=== PATIENT | male | born 1955 | race Caucasian/White ===

== ENCOUNTER → 2016-11-15 | Outpatient (CLI) | payer MEDICARE, BC ==
--- NOTE | 2016-11-18 14:06 | PN ---
This is a 61-year-old male patient with known history of obstructive sleep apnea with AHI of 27 was being treated with CPAP pressure of 11 cm of water. The patient lives in [place] and he spends [place] in [place]. His CPAP unit was checked during his earlier visit and he was not having any active issues. However, on today's evaluation the patient seems to be interested in a newer CPAP unit. He feels that he is not getting adequate pressure from his older unit and he wants to upgrade this machine to an automatic CPAP. He was apparently hospitalized in [place] for trouble with atrial fibrillation and he is currently being followed up by Cardiology. BP is 118/82, pulse 66, respirations 14, temperature 97.9, weight is 137, height is 5 foot 7, BMI is 37.1. [place] score is at 12. GENERAL APPEARANCE: Calm, comfortable. HEENT: Negative for JVD. No goiter or neck masses. Mallampati class IV. LUNGS: Clear to auscultation. HEART: Sounds are regular, positive S1, S2. No S3, S4 or murmurs. ABDOMEN: Soft, nontender, no organomegaly. EXTREMITIES: No edema, cyanosis or clubbing. IMPRESSION: 1. Obstructive sleep apnea with an apnea-hypopnea index of 27. 2. Obesity. 3. Paroxysmal atrial fibrillation. PLAN: Will offer this patient auto CPAP unit. If this is approved by the insurance the patient will come and see me back in a few months time for a compliance check. He is utilizing a [employer] Quattro full-face mask. [facility]
== END | disposition home or self-care (01) ==
LOC: SLEEP 13:36
PROVIDERS: ATTEND Internal Medicine Critical Care Medicine
DX: G47.33 Obstructive sleep apnea (adult) (pediatric) (principal); I48.91 Unspecified atrial fibrillation; E66.9 Obesity, unspecified; Z68.37 Body mass index [BMI] 37.0-37.9, adult

== ENCOUNTER → 2017-09-21 | Outpatient (CLI) | payer MEDICARE, BC ==
--- NOTE | 2017-09-21 13:41 | US ---
EXAMINATION TYPE: US kidneys/renal and bladder DATE OF EXAM: 09/21/2017 COMPARISON: NONE CLINICAL HISTORY: N20.0 kidney stones. EXAM MEASUREMENTS: Right Kidney: 12.1 x 6.2 x 5.2 cm Left Kidney: 12.5 x 5.4 x 6.7 cm Post Void Residual Volume: 3 mL Right Kidney: There are anechoic renal cyst in the mid pole measuring 6.0 x 5.1 x 4.9 cm and in the upper pole measuring 2.0 x 1.9 x1.7 cm. Additionally there is a 1.6 x 1.6 x 1.7 cm hypoechoic well ci rcumscribed mass adjacent to the larger renal cyst within the midpole. No hydronephrosis. Left Kidney: cysts, 1.6 x 1.6 x 1.9 upper pole, 1.7 x 1.5 x 1.1 cm lower pole , mild hydro , right calculi 0.6 cm Bladder: wnl Bilateral Jets seen: Yes Normal Post Void Residual: Yes IMPRESSION: 1. Mild left hydronephrosis although a distal urinary bladder jet is seen on the left. CT urogram cou ld be performed to evaluate for incompletely obstructing calculus or mass. 2. Multiple bilateral renal cysts, however there is additionally a 1.7 cm right renal lesion that luciano s not fit criteria for a simple cyst and could be further evaluated on the above recommended CT.
== END | disposition home or self-care (01) ==
LOC: RADUSWWP 12:31
PROVIDERS: ATTEND Family Medicine
DX: N13.30 Unspecified hydronephrosis (principal); N28.1 Cyst of kidney, acquired
CPT/HCPCS: 76770

== ENCOUNTER → 2017-10-03 | Outpatient (CLI) | payer MEDICARE, BC ==
--- NOTE | 2017-10-04 08:01 | CT ---
EXAMINATION TYPE: CT abdomen wo/w con DATE OF EXAM: 10/03/2017 COMPARISON: CT abdomen and pelvis December 14, 2012. Recent renal ultrasound September 21, 2017 HISTORY: Bilateral flank pain and hematuria. CT DLP: 2887.2 mGycm, Automated Exposure Control for Dose Reduction was Utilized. CONTRAST: CT scan of the abdomen is performed without oral and without and with IV Contrast, patient injected w ith 100ml mL of Isovue M300. FINDINGS: LUNG BASES: There is partial visualization of new right-sided pacemaker/defibrillator leads. There is linear scarring and/or atelectasis in both bases. LIVER/GB: Stone filled gallbladder is redemonstrated, there appears to be stones extending into the g allbladder neck or cystic duct. No surrounding inflammatory change is present. PANCREAS: No significant abnormality is seen. SPLEEN: No significant abnormality is seen. ADRENALS: No significant abnormality is seen. KIDNEYS: Noncontrast images show 6-8 small calculi scattered throughout the right kidney measuring up to 6 mm in size lower pole level axial image 46. In addition there is 5 mm collecting system calculu s axial image 41. The left kidney shows approximately 8 scattered small calculi largest measures 6 mm long axis axial image 36 mid pole level. Postcontrast images show symmetric cortical medullary uptak e and excretion without evidence of hydronephrosis or obstructing ureter calculi bilaterally. There are 3 simple appearing cysts scattered throughout the right kidney, largest is anteriorly mid p ole level measuring 5.1 x 5.0 cm image 45 series 10 not significantly changed in size or appearance f rom prior CT. The upper pole cyst is enlarged in size from prior study. Within left kidney there are 2 simple appearing cysts redemonstrated slightly larger in size versus prior study noted on axial traci ge 39 and 45 series 10. No worrisome solid or cystic mass is identified in either kidney. BOWEL: No significant abnormality is seen. LYMPH NODES: No greater than 1cm abdominal lymph nodes are appreciated. OSSEOUS STRUCTURES: There is grade 1 anterolisthesis of L5 on S1. There is advanced disc space narrow ing with vacuum disc phenomenon and endplate sclerosis at this level. There is moderate to advanced d isc space narrowing with vacuum disc phenomenon L4-L5 level. Bilateral pars defects L5 level are seen . There is prominent facet arthropathy lower lumbar spine. OTHER: No significant additional abnormality is seen. IMPRESSION: 1. Bilateral nephrolithiasis redemonstrated. There is increase in number of calculi bilaterally from prior CT. Or calculi are visualized on CT than suspected on recent ultrasound. 2. No hydronephrosis is evident currently. There is symmetric cortical medullary uptake and excretion . There is interval resolution of mild left-sided hydronephrosis from recent ultrasound noted. 3. There are several simple appearing cysts scattered throughout both kidneys. No suspicious solid or cystic renal mass is identified in either kidney.
== END | disposition home or self-care (01) ==
LOC: RADCTMAIN 17:36
PROVIDERS: ATTEND Family Medicine
DX: N20.0 Calculus of kidney (principal); N28.1 Cyst of kidney, acquired
CPT/HCPCS: 74170; Q9967

== ENCOUNTER → 2018-10-09 | Outpatient (CLI) | payer MEDICARE, OTHER ==
--- NOTE | 2018-10-09 13:46 | XR ---
KUB HISTORY: Left kidney stone Frontal KUB on [address] images correlated to prior CT dated 10/03/2017 There is a calcification in the left paraspinal location at the L4-5 level measuring approximately 8 x 4 mm. May be some smaller calcifications immediately adjacent. Small calcification present within t he left kidney and right kidney as described on prior CT, the largest measures only approximately 2 m m. There are at least 3 calcifications on the right and on the left. Multiple calcifications are note d within the pelvis, there may be distal ureteral calcifications present. IMPRESSION: Bilateral nephrolithiasis. Possible ureteral calcifications as described.
== END | disposition home or self-care (01) ==
LOC: RADXRMAIN 11:21
PROVIDERS: ATTEND Urology
DX: N20.0 Calculus of kidney (principal)
CPT/HCPCS: 74018

== ENCOUNTER → 2018-10-18 | Outpatient (CLI) | payer MEDICARE ==
--- NOTE | 2018-10-18 14:11 | XR ---
KUB HISTORY: Calculus of ureter, bilateral renal calculi Frontal KUB on 2 images correlated to prior KUB 10/09/2018 Multiple bilateral renal calcifications are again noted. Calcification along the proximal left ureter region overlying the L3 transverse process is again noted and shows a similar appearance measuring a pproximately 12 mm in cephalad to caudal dimension, there may be fragmentation. Multiple calcificatio ns again noted in the pelvis. Calcifications within the distribution of the distal left ureter are no longer seen. High density within the gallbladder compatible with stones. IMPRESSION: Left ureteral calcification persists. Additional findings above. Bilateral nephrolithiasi s.
== END | disposition home or self-care (01) ==
LOC: RADXRMAIN 11:00
PROVIDERS: ATTEND Urology
DX: N20.0 Calculus of kidney (principal); N28.89 Other specified disorders of kidney and ureter; Z88.5 Allergy status to narcotic agent
CPT/HCPCS: 74018

== ENCOUNTER → 2018-10-31 | Outpatient (CLI) | payer MEDICARE ==
--- NOTE | 2018-10-31 12:57 | XR ---
EXAMINATION TYPE: XR KUB DATE OF EXAM: 10/31/2018 COMPARISON: 10/18/2018 HISTORY: 10/18/2018 TECHNIQUE: One view abdominal series FINDINGS: The osseous structures are intact. The bowel gas pattern is nonspecific. Left kidney and collecting system: There are approximately 7 punctate 3 mm or less calcifications karla ng the lower pole of the left kidney. There is a calcification along the left paraspinal line between the L4 and L5 disc interspace measuring 12 mm in length and 5.2 mm in transverse dimension. Right kidney: Assessment is limited due to overlying bowel content. There is suspicion for at least f our 3 mm or less calcifications overlying the lower pole the right kidney. Pelvis: Calculi in the pelvis are stable and most typical of vascular phleboliths. Diffuse osteopenia is noted. There is multilevel degenerative change of the spine. Arthropathy of the hips noted. Calcifications the pelvis are likely vascular. IMPRESSION: 1. Stable left-sided renal calculi totaling an approximate number of 7. All measuring 3 mm or less. 2. Stable mid left ureteral calculus adjacent to the L4-L5 disc space measuring 5.2 mm in transverse dimension and 12 mm in craniocaudal dimension. 3. Assessment of the right renal outline is somewhat limited due to bowel content. Suspicion for at l east a 4 less than 3 mm right renal calculi.
== END | disposition home or self-care (01) ==
LOC: RADXRMAIN 12:33
PROVIDERS: ATTEND Urology
DX: N20.1 Calculus of ureter (principal); N20.0 Calculus of kidney
CPT/HCPCS: 74018

== ENCOUNTER → 2018-11-26 | Outpatient (CLI) | payer MEDICARE ==
--- NOTE | 2018-11-26 09:51 | XR ---
EXAMINATION TYPE: XR KUB DATE OF EXAM: 11/26/2018 COMPARISON: 10/31/2018 HISTORY: Ureteral stone TECHNIQUE: One view abdominal series FINDINGS: The osseous structures are intact. The bowel gas pattern is nonspecific. Left kidney demonstrates approximately 5 calcifications overlying the lower pole. Mid and upper pole scared. Right kidney: There are approximately one calcification measuring 3 mm upper pole. Pelvis: Stable appearing calcifications and therefore likely vascular. Previous noted left paraspinal calculus no longer identified. Arthropathy of the hips and degenerative change of the spine. Surgical changes involving the hardware suggested with cardiac device. Bowel gas pattern nonspecific. Chronic rib cage deformity in the righ t. IMPRESSION: 1. Left paraspinal calculus at the L4-L5 level is no longer identified. 2. Bilateral nephrolithiasis.
== END | disposition home or self-care (01) ==
LOC: RADXRMAIN 09:22
PROVIDERS: ATTEND Urology
DX: N20.0 Calculus of kidney (principal)
CPT/HCPCS: 74018

== ENCOUNTER → 2018-12-13 | Outpatient (CLI) | payer MEDICARE ==
--- NOTE | 2018-12-14 08:08 | CT ---
EXAMINATION TYPE: CT chest wo con DATE OF EXAM: 12/13/2018 COMPARISON: January 18, 2011 HISTORY: Multiple lung nodules. CT DLP: 615.[address] of the chest was performed with lung and mediastinal window settings submitted. The la ck of contrast limits evaluation of the vascular, mediastinal and parenchymal structures including th e upper abdomen. LUNGS: Mild chronic elevation left hemidiaphragm. Left basilar parenchymal scarring is stable. Scatte red subpleural nodules remain unchanged without suspicious nodule or mass identified at this time. No focal consolidation or volume loss. MEDIASTINUM/VIRGIL: Thoracic aorta is of normal caliber with limited evaluation given lack of contrast . The heart is not enlarged. The heart is enlarged. Pacer device is noted in place. No evidence for mediastinal mass. No lymph nodes greater than 1cm. UPPER ABDOMEN: Hypoattenuating lesion upper pole left kidney may reflect a cyst. Right-sided nephroli thiasis. OTHER: No significant other abnormality. IMPRESSION: 1. Scattered subpleural nodules remain unchanged without suspicious nodule or mass identified at thi s time.
== END | disposition home or self-care (01) ==
LOC: RADCTMAIN 16:16
PROVIDERS: ATTEND Family Medicine
DX: R91.8 Other nonspecific abnormal finding of lung field (principal)
CPT/HCPCS: 71250

== ENCOUNTER → 2018-12-25 | Outpatient (CLI) | payer MEDICARE ==
--- NOTE | 2018-12-25 10:30 | XR ---
EXAMINATION TYPE: XR KUB DATE OF EXAM: 12/25/2018 COMPARISON: 11/26/2018 HISTORY: Post lithotripsy TECHNIQUE: One view abdominal series FINDINGS: There is a 2 mm calcification overlying the right renal outline. There are 4 less than 5 mm calcifications overlying the lower pole the left renal. Chronic rib deformity on the right suspected. Cardiac lead noted with degenerative change of the spin e and diffuse osteopenia. Bowel gas pattern nonspecific. Pelvis: Arthropathy of the hips. There are stable appearing calcifications involving the pelvis. IMPRESSION: 1. Pelvic calcifications are stable in size and number relative to the prior exam. Suspect bilateral nephrolithiasis. No significant interval change.
== END | disposition home or self-care (01) ==
LOC: RADXRMAIN 09:47
PROVIDERS: ATTEND Urology
DX: N20.1 Calculus of ureter (principal)
CPT/HCPCS: 74018

== ENCOUNTER → 2019-01-01 | Outpatient (CLI) | payer MEDICARE ==
--- NOTE | 2019-01-02 11:11 | ECHOF ---
Referral Reason:R91.8 multi lung nodules, I42.9 prim cardio myopat MEASUREMENTS -------- HEIGHT: 175.3 cm WEIGHT: 113.4 kg BP: IVSd: 0.8 cm (0.6 - 1.1) LVIDd: 4.1 cm (3.9 - 5.3) LVPWd: 1.0 cm (0.6 - 1.1) IVSs: 1.4 cm LVIDs: 1.8 cm LVPWs: 1.4 cm LAESV Index (A-L): 20.00 ml/m Ao Diam: 3.4 cm (2.0 - 3.7) AV Cusp: 2.5 cm (1.5 - 2.6) LA Diam: 4.2 cm (2.7 - 3.8) MV EXCURSION: 17.961 mm (> 18.000) MV EF SLOPE: 71 mm/s (70 - 150) EPSS: 0.2 cm MV E Piotr: 0.55 m/s MV DecT: 282 ms MV A Piotr: 0.83 m/s MV E/A Ratio: 0.67 RAP: 5.00 mmHg RVSP: 15.58 mmHg FINDINGS -------- Sinus rhythm. Pacemaker This was a technically adequate study. The left ventricular size is normal. Left ventricular wall thickness is normal. Overall left vent ricular systolic function is normal with, an EF between 55 - 60 %. The right ventricle is normal in size. Normal LA size by volume 22+/-6 ml/m2. The right atrial size is normal. Aortic valve is trileaflet and is mildly thickened. The mitral valve is normal. There is trace mitral regurgitation. The tricuspid valve appears structurally normal. Trace tricuspid regurgitation present. Right cyrus tricular systolic pressure is normal at < 35 mmHg. There is no pulmonic regurgitation present. The aortic root size is normal. Normal inferior vena cava with normal inspiratory collapse consistent with estimated right atrial pre ssure of 5 mmHg. There is no pericardial effusion. CONCLUSIONS -------- 1. Sinus rhythm. 2. Pacemaker 3. This was a technically adequate study. 4. The left ventricular size is normal. 5. Left ventricular wall thickness is normal. 6. Overall left ventricular systolic function is normal with, an EF between 55 - 60 %. 7. The right ventricle is normal in size. 8. Normal LA size by volume 22+/-6 ml/m2. 9. The right atrial size is normal. 10. Aortic valve is trileaflet and is mildly thickened. 11. The mitral valve is normal. 12. There is trace mitral regurgitation. 13. The tricuspid valve appears structurally normal. 14. Trace tricuspid regurgitation present. 15. Right ventricular systolic pressure is normal at < 35 mmHg. 16. There is no pulmonic regurgitation present. 17. The aortic root size is normal. 18. Normal inferior vena cava with normal inspiratory collapse consistent with estimated right atrial pressure of 5 mmHg. 19. There is no pericardial effusion. ACCOUNTING/FINANCE TUTOR: Bria Quinn RDCS
== END | disposition home or self-care (01) ==
LOC: RADECHMAIN 15:06
PROVIDERS: ATTEND Family Medicine
DX: I35.8 Other nonrheumatic aortic valve disorders (principal)
CPT/HCPCS: 93306

== ENCOUNTER → 2019-10-21 | Outpatient (CLI) | payer MEDICARE ==
--- NOTE | 2019-10-21 15:19 | XR ---
EXAMINATION TYPE: XR KUB DATE OF EXAM: 10/21/2019 COMPARISON: 12/25/2018 HISTORY: Pain TECHNIQUE: One view abdominal series FINDINGS: The osseous structures are intact. The bowel gas pattern is nonspecific. Arthropathy of the hips not ed. Diffuse osteopenia and degenerative change of the spine. Correlate for sacral iliac arthritis. Left kidney: There are approximately 8 calcifications scattered throughout the left kidney the larges t is seen in the lower pole measuring 4 mm. Remaining calcifications measure less than 4 mm. Some of these were not definitively seen on the prior exam. Right kidney: There are approximately 6 calcifications identified within the right kidney the largest measuring 3 mm. Some of which were not definitively seen on the prior exam. Pelvis: Numerous calcifications in the pelvis appear to BE most likely vascular. There is a single le genny within the upper left pelvis measuring 3 mm which could been the course of the left ureter. This calcification was not seen with certainty on the prior exam. IMPRESSION: 1. Bilateral nephrolithiasis WHICH measure less than 5 mm. Some may be new relative to the prior exam . 2. There is a new calcification in the left hemipelvis. This measures approximately 3 mm and could be within the course of the left distal ureter.
== END | disposition home or self-care (01) ==
LOC: RADXRMAIN 14:59
PROVIDERS: ATTEND Urology
DX: N20.0 Calculus of kidney (principal); R93.5 Abnormal findings on diagnostic imaging of other abdominal regions, including retroperitoneum
CPT/HCPCS: 74018

== ENCOUNTER → 2019-12-24 | Outpatient (CLI) | payer MEDICARE ==
--- NOTE | 2019-12-24 10:06 | US ---
EXAMINATION TYPE: US kidneys/renal and bladder DATE OF EXAM: 12/24/2019 COMPARISON: CT 2017, US 09/21/2017 CLINICAL HISTORY: N20.0 Calculus of kidney. Patient recently had lithotripsy bilaterally EXAM MEASUREMENTS: Right Kidney: 10.7 x 6.0 x 5.9 cm Left Kidney: 11.9 x 5.9 x 5.6 cm Right Kidney: No hydronephrosis. Multiple cystic areas visualized measuring 2.5 x2.3 x 2.6 cm. Tiny e chogenic foci visualized measuring 0.5 cm. Large cystic area visualized on previous is not visualized on this exam- patient cannot recall any intervention with a cyst. Left Kidney: No hydronephrosis. Multiple cystic areas visualized 2.69 x 1.8 x 2.5 cm. Echogenic foci visualized measuring 0.4 cm Bladder: wnl IMPRESSION: 1. Multiple bilateral renal cysts. 2. Nonobstructing nephrolithiasis.
[2019-12-24 11:24] LABS: ALT 23 U/L (4-49); AST 26 U/L (17-59); African American GFR (CKD) >90 (>60 ml/min/1.73 sqM); Alkaline Phosphatase 127 U/L (38-126); Anion Gap 6 mmol/L; Blood Urea Nitrogen 17 mg/dL (9-20); Calcium 8.9 mg/dL (8.4-10.2); Carbon Dioxide 25 mmol/L (22-30); Chloride 106 mmol/L (98-107); Cholesterol 134 mg/dL (<200); Creatine Kinase 74 U/L (55-170); Glucose 94 mg/dL (74-99); HDL Cholesterol 50 mg/dL (40-60); LDL Cholesterol,Calculated 67 mg/dL (0-99); Non-African American GFR(CKD) 90 (>60 ml/min/1.73 sqM); Potassium 4.8 mmol/L (3.5-5.1); Sodium 137 mmol/L (137-145); Total Bilirubin 0.7 mg/dL (0.2-1.3); Total Protein 6.6 g/dL (6.3-8.2); Triglycerides 86 mg/dL (<150)
[2019-12-24 11:29] LABS: Basophils % (A) 1 %; Eosinophils # (A) 0.1 k/uL (0-0.7); Eosinophils % (A) 2 %; HCT 46.1 % (39.0-53.0); HGB 14.8 gm/dL (13.0-17.5); Lymphocytes # (A) 1.2 k/uL (1.0-4.8); Lymphocytes % (A) 29 %; MCH 29.8 pg (25.0-35.0); MCV 92.9 fL (80.0-100.0); Mean Platelet Volume 12.7; Monocytes # (A) 0.3 k/uL (0-1.0); Monocytes % (A) 8 %; Neutrophils # (A) 2.5 k/uL (1.3-7.7); Neutrophils % (A) 59 %; Platelet Count 114 k/uL (150-450); RBC 4.96 m/uL (4.30-5.90); RDW 13.6 % (11.5-15.5); WBC 4.2 k/uL (3.8-10.6)
[2019-12-24 12:13] LABS: Anisocytosis (M) Present; Large Platelets Present; Poikilocytosis (M) Present
--- NOTE | 2019-12-24 16:30 | XR ---
EXAMINATION TYPE: XR KUB DATE OF EXAM: 12/24/2019 10:10 AM CLINICAL HISTORY: Bilateral kidney stones TECHNIQUE: Frontal images of the abdomen and pelvis were obtained COMPARISON: Abdominal radiograph 10/21/2019. FINDINGS: Numerous bilateral calculi overlie the renal shadows, some of which were better appreciated on prior examination and partially obscured. The previously visualized 3 mm calcification over the l eft hemipelvis is not seen on current exam. Nonspecific bowel gas pattern. Degenerative changes of th e spine and bilateral hips. IMPRESSION: 1. Previously described 3 mm calcification over the left hemipelvis is not seen on current exam and m ay represent passed stone. 2. Numerous bilateral nephrolithiasis.
[2019-12-24 19:00] LABS: Prostate Specific Antigen 3.1 ng/mL (0.0-4.5)
[2019-12-24 19:49] LABS: Hemoglobin A1C 5.4 % (4.0-6.0)
== END | disposition home or self-care (01) ==
LOC: RADUSWWP 09:14
PROVIDERS: ATTEND Urology
DX: N28.1 Cyst of kidney, acquired (principal); N20.0 Calculus of kidney; E78.5 Hyperlipidemia, unspecified; Z12.5 Encounter for screening for malignant neoplasm of prostate; Z88.5 Allergy status to narcotic agent
CPT/HCPCS: 74018; 76770; 80053; 80061; 82550; 83036; 84153; 85025

== ENCOUNTER → 2020-02-10 | Outpatient (CLI) | payer MEDICARE ==
--- NOTE | 2020-02-10 15:52 | XR ---
EXAMINATION TYPE: XR KUB DATE OF EXAM: 02/10/2020 COMPARISON: [id number] HISTORY: Pain TECHNIQUE: One view abdominal series FINDINGS: The osseous structures are intact. The bowel gas pattern is nonspecific. Left kidney: There are 2 calcifications overlying the mid and lower pole the largest measuring 4.4 mm . Suspect punctate upper pole additional calculus. Right kidney: Suspect a punctate 1 mm upper pole and 2 additional punctate 1 to 2 mm lower pole right renal calculi. Calcifications within the pelvis are stable likely vascular. Arthropathy of the hips, diffuse osteope alda and degenerative change of the spine noted. IMPRESSION: 1. Bilateral nephrolithiasis.
== END | disposition home or self-care (01) ==
LOC: RADXRMAIN 15:23
PROVIDERS: ATTEND Urology
DX: N20.0 Calculus of kidney (principal)
CPT/HCPCS: 74018

== ENCOUNTER → 2020-05-06 | Outpatient (CLI) | payer MEDICARE ==
[2020-05-06 10:32] LABS: Basophils % (A) 1 %; Eosinophils # (A) 0.2 k/uL (0-0.7); Eosinophils % (A) 5 %; HGB 15.2 gm/dL (13.0-17.5); Lymphocytes # (A) 1.4 k/uL (1.0-4.8); Lymphocytes % (A) 28 %; MCH 29.9 pg (25.0-35.0); MCHC 33.1 g/dL (31.0-37.0); MCV 90.4 fL (80.0-100.0); Mean Platelet Volume 10.2; Monocytes # (A) 0.3 k/uL (0-1.0); Monocytes % (A) 7 %; Neutrophils # (A) 2.8 k/uL (1.3-7.7); Neutrophils % (A) 57 %; Platelet Count 108 k/uL (150-450); RBC 5.09 m/uL (4.30-5.90); RDW 13.3 % (11.5-15.5); WBC 4.9 k/uL (3.8-10.6)
[2020-05-06 11:07] LABS: Large Platelets Present
[2020-05-06 16:04] LABS: African American GFR (CKD) 102.8 (60.0-200.0); Albumin 4.2 g/dL (3.80-4.90); Anion Gap 8.8 mmol/L (4.00-12.00); BUN/Creat Ratio 23.33 Ratio (12.00-20.00); Calcium 9.3 mg/dL (8.7-10.3); Carbon Dioxide 24.2 mmol/L (21.6-31.8); Chol/HDL Ratio 3.26; Globulin 2.1 g/dL (1.6-3.3); LDL Cholesterol,Calculated 83.8 mg/dL (0.0-131.0); Non-African American GFR(CKD) 88.7 (60.0-200.0); Potassium 4.3 mmol/L (3.5-5.5); Total Bilirubin 0.9 mg/dL (0.2-1.2); Total Protein 6.3 g/dL (6.2-8.2); VLDL Calculation 20.2 mg/dL (5.00-40.00)
[2020-05-06 16:13] LABS: T4, Free (Free Thyroxine) 0.9 ng/dL (0.80-1.80)
== END | disposition home or self-care (01) ==
LOC: LABWHC1 09:28
PROVIDERS: ATTEND Nurse Practitioner Adult Health
DX: E78.5 Hyperlipidemia, unspecified (principal); I48.91 Unspecified atrial fibrillation
CPT/HCPCS: 36415; 80053; 80061; 82550; 84439; 84443; 85025

== ENCOUNTER → 2022-01-27 | Outpatient (CLI) | payer MEDICARE ==
[2022-01-27 14:48] LABS: Basophils # (A) 0.02 X 10*3/uL (0.00-0.10); Basophils % (A) 0.4 %; Eosinophils # (A) 0.08 X 10*3/uL (0.04-0.35); Eosinophils % (A) 1.5 %; HCT 45.5 % (39.6-50.0); HGB 14.7 g/dL (13.0-17.0); Immature Grans, Automated 0.2 %; Lymphocytes # (A) 1.36 X 10*3/uL (0.90-5.00); Lymphocytes % (A) 25.8 %; MCH 29.8 pg (27.0-32.0); MCHC 32.3 g/dL (32.0-37.0); MCV 92.3 fL (80.0-97.0); Mean Platelet Volume 12.1 fL (9.5-12.2); Monocytes # (A) 0.43 X 10*3/uL (0.20-1.00); Monocytes % (A) 8.2 %; NRBC Per 100 WBC 0 /100 WBCS (0.0-0.0); Neutrophils # (A) 3.37 X 10*3/uL (1.80-7.70); Neutrophils % (A) 63.9 %; Platelet Count 104 X 10*3/uL (140-440); RBC 4.93 X 10*6/uL (4.40-5.60); RDW 14.1 % (11.5-14.5); WBC 5.27 X 10*3/uL (4.50-10.00)
[2022-01-27 18:05] LABS: % Iron Saturation 14.85 (15.00-50.00); ALT 30 U/L (10-49); AST 25 U/L (14-35); African American GFR (CKD) 101.4 (60.0-200.0); Albumin 4.3 g/dL (3.8-4.9); Albumin/Globulin Ratio 1.87 (1.60-3.17); Alkaline Phosphatase 121 U/L (41-126); BUN/Creat Ratio 19.78 Ratio (12.00-20.00); Blood Urea Nitrogen 17.8 mg/dL (9.0-27.0); Calcium 9.4 mg/dL (8.7-10.3); Carbon Dioxide 23.9 mmol/L (20.0-27.5); Chloride 106 mmol/L (96-109); Chol/HDL Ratio 2.94 Ratio; Creatine Kinase 71 U/L (35-257); Globulin 2.3 g/dL (1.6-3.3); Glucose 91 mg/dL (70-110); Iron 56 ug/dL (65-175); LDL Cholesterol,Calculated 84.7 mg/dL (0.0-131.0); Non-African American GFR(CKD) 87.5 (60.0-200.0); Potassium 4.5 mmol/L (3.5-5.5); Sodium 141 mmol/L (135-145); Total Iron Binding Capacity 374 ug/dL (228-460); Total Protein 6.6 g/dL (6.2-8.2); VLDL Calculation 17.64 mg/dL (5.00-40.00)
== END | disposition home or self-care (01) ==
LOC: LABWHC1 08:21
PROVIDERS: ATTEND Family Medicine
DX: Z12.5 Encounter for screening for malignant neoplasm of prostate (principal); I42.9 Cardiomyopathy, unspecified; E78.5 Hyperlipidemia, unspecified; R53.83 Other fatigue
CPT/HCPCS: 36415; 80053; 80061; 82306; 82550; 82607; 82728; 82746; 83036; 83540; 83550; 83880; 84153; 84402; 84403; 85025

== ENCOUNTER → 2022-02-16 | Outpatient (CLI) | payer MEDICARE ==
[~2022-02-16] MED LIST: BEBTELOVIMAB (EUA) 175 MG/2 ML VIAL IV NR; SODIUM CHLORIDE 0.9% 500 ML 500 ML in EMPTY BAG 1 BAG IV PRN
[2022-02-16 14:11] VITALS: RESP 16; TEMP 97.7
[2022-02-16 14:26] VITALS: BP 128/79; PULSE 77
== END ==
LOC: PROCWHC3 13:05
PROVIDERS: ATTEND Nurse Practitioner Adult Health
DX: U07.1 COVID-19 (principal); E66.9 Obesity, unspecified; Z68.34 Body mass index [BMI] 34.0-34.9, adult; Z88.5 Allergy status to narcotic agent
CPT/HCPCS: Q0222; M0222

== ENCOUNTER 2022-02-18 13:16 | Emergency (ER) | payer MEDICARE ==
[2022-02-18 13:28] VITALS: PULSE 60
--- NOTE | 2022-02-18 15:09 | XR ---
EXAMINATION TYPE: XR chest 2V DATE OF EXAM: 02/18/2022 COMPARISON: Chest CT December 13, 2018 HISTORY: Shortness of breath TECHNIQUE: Frontal and lateral views of the chest are obtained. FINDINGS: There is; chronic parenchymal change bilaterally without suspicious focal air space opacit y, pleural effusion, or pneumothorax seen. The cardiac silhouette size is stable and within normal l imits with dual-lead pacemaker redemonstrated. Atrial septal closure device redemonstrated. The osse ous structures remain demineralized. IMPRESSION: Chronic changes without acute pulmonary process.
[2022-02-18] MEDS ORDERED: ALBUTEROL HFA INHALER INHALATION STA (15:36)
[2022-02-18 16:16] LABS: Basophils % (A) 0 %; Eosinophils % (A) 0 %; HCT 45.4 % (39.0-53.0); HGB 15.2 gm/dL (13.0-17.5); Lymphocytes # (A) 0.8 k/uL (1.0-4.8); Lymphocytes % (A) 16 %; MCH 30.3 pg (25.0-35.0); MCHC 33.4 g/dL (31.0-37.0); MCV 90.7 fL (80.0-100.0); Mean Platelet Volume 11.7; Monocytes # (A) 0.3 k/uL (0-1.0); Monocytes % (A) 5 %; Neutrophils # (A) 3.8 k/uL (1.3-7.7); Neutrophils % (A) 78 %; Platelet Count 122 k/uL (150-450); RDW 13.3 % (11.5-15.5); WBC 4.9 k/uL (3.8-10.6)
[2022-02-18 16:29] LABS: INR 0.9 (<1.2); Partial Thromboplastin Time 26.5 sec (22.0-30.0); Prothrombin Time 9.9 sec (9.0-12.0)
[2022-02-18 16:36] LABS: ALT 72 U/L (4-49); AST 34 U/L (17-59); African American GFR (CKD) >90 (>60 ml/min/1.73 sqM); Albumin 4.3 g/dL (3.5-5.0); Alkaline Phosphatase 140 U/L (38-126); Anion Gap 13 mmol/L; Blood Urea Nitrogen 18 mg/dL (9-20); Calcium 9.3 mg/dL (8.4-10.2); Carbon Dioxide 23 mmol/L (22-30); Chloride 102 mmol/L (98-107); Glucose 113 mg/dL (74-99); LDH 501 U/L (313-618); Magnesium 1.8 mg/dL (1.6-2.3); Non-African American GFR(CKD) >90 (>60 ml/min/1.73 sqM); Potassium 4.7 mmol/L (3.5-5.1); Sodium 138 mmol/L (137-145); Total Bilirubin 0.5 mg/dL (0.2-1.3); Total Protein 7.1 g/dL (6.3-8.2)
[2022-02-18 17:07] LABS: C Reactive Protein <0.5 mg/dL (<1.0)
--- NOTE | 2022-02-18 18:10 | ED ---
General Adult HPI - General Chief complaint: Shortness of Breath Stated complaint: covid+, increased SOB Time Seen by Provider: 02/18/22 15:26 Source: patient, RN notes reviewed Mode of arrival: wheelchair Limitations: no limitations - History of Present Illness Initial comments: Patient is a pleasant 58-year-old male presenting to the emergency department difficulty breathing. Patient states symptoms been present and progressive over the past several days. Patient did test positive for: 19 infection. Patient did have outpatient monoclonal antibodies done 2 days ago however symptoms have worsened since that time. Patient does have cough. Dyspnea mostly worsen with exertion. No chest pain. Patient has been fatigued. Patient has had decreased appetite and decreased oral intake - Related Data Previous Rx's Medication Instructions Recorded Albuterol Inhaler [Ventolin Hfa 2 puff INHALATION Q4HR PRN #1 each 02/18/22 Inhaler] Allergies Allergy/AdvReac Type Severity Reaction Status Date / Time codeine AdvReac Vomiting Verified 02/18/22 13:28 Review of Systems ROS Statement: Those systems with pertinent positive or pertinent negative responses have been documented in the HPI. ROS Other: All systems not noted in ROS Statement are negative. Constitutional: Reports: chills Eyes: Denies: eye pain ENT: Denies: ear pain Respiratory: Reports: cough, dyspnea Cardiovascular: Denies: chest pain Endocrine: Reports: fatigue Gastrointestinal: Denies: abdominal pain Genitourinary: Denies: dysuria Musculoskeletal: Denies: back pain Skin: Denies: rash Neurological: Denies: weakness Past Medical History Past Medical History: Atrial Fibrillation, Chest Pain / Angina Past Surgical History: No Surgical Hx Reported Past Psychological History: No Psychological Hx Reported Past Alcohol Use History: None Reported Past Drug Use History: None Reported General Exam Limitations: no limitations General appearance: alert, in no apparent distress Head exam: Present: normocephalic Eye exam: Present: normal appearance, PERRL Neck exam: Present: normal inspection Respiratory exam: Present: normal lung sounds bilaterally Cardiovascular Exam: Present: regular rate, normal rhythm GI/Abdominal exam: Present: soft. Absent: tenderness Extremities exam: Present: normal inspection. Absent: pedal edema, calf tenderness Neurological exam: Present: alert Psychiatric exam: Present: normal affect, normal mood Skin exam: Present: normal color Course Vital Signs 02/18/22 02/18/22 02/18/22 13:25 15:37 15:38 Temperature 97.8 F Pulse Rate 60 60 Respiratory 18 16 16 Rate Blood Pressure 125/78 118/88 O2 Sat by Pulse 97 97 Oximetry 02/18/22 17:00 Temperature Pulse Rate 60 Respiratory 16 Rate Blood Pressure 121/91 O2 Sat by Pulse 100 Oximetry Medical Decision Making - Medical Decision Making Patient reevaluated and feels better with MDI treatment. Patient updated on results. Patient is comfortable with discharge home. - Lab Data Result diagrams: 02/18/22 16:03 02/18/22 16:03 Lab Results 02/18/22 02/18/22 02/18/22 Range/Units 16:03 16:03 16:03 WBC 4.9 (3.8-10.6) k/uL RBC 5.00 (4.30-5.90) m/uL Hgb 15.2 (13.0-17.5) gm/dL Hct 45.4 (39.0-53.0) % MCV 90.7 (80.0-100.0) fL MCH 30.3 (25.0-35.0) pg MCHC 33.4 (31.0-37.0) g/dL RDW 13.3 (11.5-15.5) % Plt Count 122 L (150-450) k/uL MPV 11.7 Neutrophils % 78 % Lymphocytes % 16 % Monocytes % 5 % Eosinophils % 0 % Basophils % 0 % Neutrophils # 3.8 (1.3-7.7) k/uL Lymphocytes # 0.8 L (1.0-4.8) k/uL Monocytes # 0.3 (0-1.0) k/uL Eosinophils # 0.0 (0-0.7) k/uL Basophils # 0.0 (0-0.2) k/uL PT 9.9 (9.0-12.0) sec INR 0.9 (<1.2) APTT 26.5 (22.0-30.0) sec D-Dimer 0.25 (<0.60) mg/L FEU Sodium 138 (137-145) mmol/L Potassium 4.7 (3.5-5.1) mmol/L Chloride 102 (98-107) mmol/L Carbon Dioxide 23 (22-30) mmol/L Anion Gap 13 mmol/L BUN 18 (9-20) mg/dL Creatinine 0.69 (0.66-1.25) mg/dL Est GFR (CKD-EPI)AfAm >90 (>60 ml/min/1.73 sqM) Est GFR (CKD-EPI)NonAf >90 (>60 ml/min/1.73 sqM) Glucose 113 H (74-99) mg/dL Plasma Lactic Acid Isaiah (0.7-2.0) mmol/L Calcium 9.3 (8.4-10.2) mg/dL Magnesium 1.8 (1.6-2.3) mg/dL Total Bilirubin 0.5 (0.2-1.3) mg/dL AST 34 (17-59) U/L ALT 72 H (4-49) U/L Alkaline Phosphatase 140 H (38-126) U/L Lactate Dehydrogenase 501 (313-618) U/L C-Reactive Protein <0.5 (<1.0) mg/dL Total Protein 7.1 (6.3-8.2) g/dL Albumin 4.3 (3.5-5.0) g/dL 02/18/22 Range/Units 16:03 WBC (3.8-10.6) k/uL RBC (4.30-5.90) m/uL Hgb (13.0-17.5) gm/dL Hct (39.0-53.0) % MCV (80.0-100.0) fL MCH (25.0-35.0) pg MCHC (31.0-37.0) g/dL RDW (11.5-15.5) % Plt Count (150-450) k/uL MPV Neutrophils % % Lymphocytes % % Monocytes % % Eosinophils % % Basophils % % Neutrophils # (1.3-7.7) k/uL Lymphocytes # (1.0-4.8) k/uL Monocytes # (0-1.0) k/uL Eosinophils # (0-0.7) k/uL Basophils # (0-0.2) k/uL PT (9.0-12.0) sec INR (<1.2) APTT (22.0-30.0) sec D-Dimer (<0.60) mg/L FEU Sodium (137-145) mmol/L Potassium (3.5-5.1) mmol/L Chloride (98-107) mmol/L Carbon Dioxide (22-30) mmol/L Anion Gap mmol/L BUN (9-20) mg/dL Creatinine (0.66-1.25) mg/dL Est GFR (CKD-EPI)AfAm (>60 ml/min/1.73 sqM) Est GFR (CKD-EPI)NonAf (>60 ml/min/1.73 sqM) Glucose (74-99) mg/dL Plasma Lactic Acid Isaiah 1.3 (0.7-2.0) mmol/L Calcium (8.4-10.2) mg/dL Magnesium (1.6-2.3) mg/dL Total Bilirubin (0.2-1.3) mg/dL AST (17-59) U/L ALT (4-49) U/L Alkaline Phosphatase (38-126) U/L Lactate Dehydrogenase (313-618) U/L C-Reactive Protein (<1.0) mg/dL Total Protein (6.3-8.2) g/dL Albumin (3.5-5.0) g/dL - Radiology Data Radiology results: image reviewed (X-ray shows some chronic changes without acute process.) Disposition Clinical Impression: COVID-19 Disposition: HOME SELF-CARE Condition: Stable Instructions (If sedation given, give patient instructions): COVID-19 (Coronavirus Disease 2019) (ED) Additional Instructions: Please do follow-up with primary care physician in the next couple days for recheck. [id number] vitamin C, vitamin D, and zinc. [id number] Tylenol if needed. Prescription for albuterol inhaler has been sent to pharmacy. Prescriptions: Albuterol Inhaler [Ventolin Hfa Inhaler] 2 puff INHALATION Q4HR PRN #1 each PRN Reason: Dyspnea Is patient prescribed a controlled substance at d/c from ED?: No Referrals: Juan Bradshaw MD [Primary Care Provider] - 1-2 days Time of Disposition: 18:14
[2022-02-18 18:39] VITALS: BP 131/89; RESP 18; TEMP 97.7
== END 2022-02-18 18:39 | disposition home or self-care (01) ==
LOC: EC 13:16
DX: U07.1 COVID-19 (principal); I48.91 Unspecified atrial fibrillation; Z88.5 Allergy status to narcotic agent
CPT/HCPCS: 36415; 71046; 80053; 82728; 83605; 83615; 83735; 84145; 85025; 85379; 85610; 85730; 86140; 93005; 94640; 99285

== ENCOUNTER → 2022-02-22 | Outpatient (CLI) | payer MEDICARE ==
[2022-02-22 16:06] LABS: Basophils % (A) 0 %; Eosinophils # (A) 0.2 k/uL (0-0.7); Eosinophils % (A) 2 %; HCT 47.3 % (39.0-53.0); HGB 16.1 gm/dL (13.0-17.5); Lymphocytes # (A) 2.5 k/uL (1.0-4.8); Lymphocytes % (A) 27 %; MCH 30.1 pg (25.0-35.0); MCV 88.7 fL (80.0-100.0); Mean Platelet Volume 10.9; Monocytes # (A) 0.7 k/uL (0-1.0); Monocytes % (A) 7 %; Neutrophils # (A) 5.8 k/uL (1.3-7.7); Neutrophils % (A) 62 %; Platelet Count 137 k/uL (150-450); RBC 5.33 m/uL (4.30-5.90); RDW 13.4 % (11.5-15.5); WBC 9.3 k/uL (3.8-10.6)
[2022-02-22 16:24] LABS: ALT 53 U/L (4-49); AST 30 U/L (17-59); African American GFR (CKD) 83 (>60 ml/min/1.73 sqM); Albumin 4.1 g/dL (3.5-5.0); Albumin/Globulin Ratio 1.4; Alkaline Phosphatase 159 U/L (38-126); Anion Gap 13 mmol/L; Blood Urea Nitrogen 25 mg/dL (9-20); Calcium 9.5 mg/dL (8.4-10.2); Carbon Dioxide 23 mmol/L (22-30); Chloride 103 mmol/L (98-107); Creatine Kinase 59 U/L (55-170); Glucose 89 mg/dL (74-99); Non-African American GFR(CKD) 72 (>60 ml/min/1.73 sqM); Potassium 4.5 mmol/L (3.5-5.1); Sodium 139 mmol/L (137-145); Total Bilirubin 0.9 mg/dL (0.2-1.3); Total Protein 7.1 g/dL (6.3-8.2)
== END | disposition home or self-care (01) ==
LOC: LABWHC1 15:32
PROVIDERS: ATTEND Family Medicine
DX: R55 Syncope and collapse (principal)
CPT/HCPCS: 36415; 80053; 82550; 83880; 84484; 85025

== ENCOUNTER → 2023-01-12 | Outpatient (CLI) | payer MEDICARE ==
--- NOTE | 2023-01-12 09:37 | US ---
EXAMINATION TYPE: US liver DATE OF EXAM: 01/12/2023 COMPARISON: NONE CLINICAL INDICATION: Male, 67 years old with history of K76.9 LIVER DISEASE, UNSPECIFIED; chrnoic jonny er disease, no symptoms TECHNIQUE: Multiple sonographic images of the right upper quadrant are obtained. FINDINGS: EXAM MEASUREMENTS: Liver Length: 14.2 cm Gallbladder Wall: 0.3 cm CBD: 0.6 cm Right Kidney: 11.5 x 5.3 x 6.6 cm Pancreas: wnl Liver: lobular appearance and heterogeneous Gallbladder: multiple dependant stones seen Evidence for sonographic Frank's sign: no CBD: wnl Right Kidney: multiple cysts, largest superior pole = 3.5 x 2.8 x 3.0cm simple appearing cyst IMPRESSION: 1. Uncomplicated cholelithiasis. 2. Right renal cysts.
== END | disposition home or self-care (01) ==
LOC: RADUSWWP 08:47
PROVIDERS: ATTEND Internal Medicine Hematology & Oncology
DX: N28.1 Cyst of kidney, acquired (principal); K76.9 Liver disease, unspecified; K80.20 Calculus of gallbladder without cholecystitis without obstruction
CPT/HCPCS: 76705

== ENCOUNTER 2023-01-27 14:00 | Emergency (ER) | payer MEDICARE ==
[2023-01-27 14:13] VITALS: PULSE 60; TEMP 98.6
[2023-01-27] MEDS ORDERED: KETOROLAC 15 MG/ML 1 ML VIAL IVP STA (14:43)
[2023-01-27] MEDS ORDERED: SODIUM CHLORIDE 0.9% 1,000 ML IV STA (14:43)
[2023-01-27] MEDS ORDERED: MORPHINE SULFATE 4 MG/ML SYRINGE IVP STA (14:44)
--- NOTE | 2023-01-27 14:50 | ED ---
Back Pain HPI - General Chief Complaint: Back Pain/Injury Stated Complaint: back pain/kidney Time Seen by Provider: 01/27/23 14:35 Source: patient, RN notes reviewed Mode of arrival: ambulatory Limitations: no limitations - History of Present Illness Initial Comments: This is a 67-year-old male who presents to the emergency department for right flank pain. States that this started yesterday and has since persisted. Reports a history of kidney stones, however he states that this pain has been constant and he has been doubled over, which is not typical for him with kidney stones, however the pain feels like it is in the same spot as it would be with a kidney stone. Additionally, he usually has blood in his urine, which has also not been the case this time. While sitting still yesterday he also started to develop pain in the left shoulder, and had not done any strenuous activity or injured it in any way. He did take tramadol, which did not effectively treat his symptoms. Denies any associated nausea or vomiting. MD Complaint: back pain Onset/Timin -: days(s) - Related Data Previous Rx's Medication Instructions Recorded Albuterol Inhaler [Ventolin Hfa 2 puff INHALATION Q4HR PRN #1 each 02/18/22 Inhaler] Ketorolac [Toradol] 10 mg PO Q6HR PRN #15 tab 01/27/23 Lidocaine 5% Patch [Lidoderm 5% 1 patch TOPICAL DAILY PRN #30 patch 01/27/23 Patch] methocarbamoL [Robaxin-750] 1,500 mg PO TID PRN #30 tab 01/27/23 Allergies Allergy/AdvReac Type Severity Reaction Status Date / Time codeine AdvReac Vomiting Verified 01/27/23 14:13 Review of Systems ROS Statement: Those systems with pertinent positive or pertinent negative responses have been documented in the HPI. ROS Other: All systems not noted in ROS Statement are negative. Past Medical History Past Medical History: Atrial Fibrillation, Chest Pain / Angina Additional Past Medical History / Comment(s): kidney stones Past Surgical History: No Surgical Hx Reported Additional Past Surgical History / Comment(s): lithotripsy, Ureter stents Past Psychological History: No Psychological Hx Reported Smoking Status: Never smoker Past Alcohol Use History: None Reported Past Drug Use History: None Reported General Exam Limitations: no limitations General appearance: alert, in no apparent distress Head exam: Present: atraumatic, normocephalic, normal inspection Respiratory exam: Present: normal lung sounds bilaterally. Absent: respiratory distress, wheezes, rales, rhonchi, stridor Cardiovascular Exam: Present: regular rate, normal rhythm, normal heart sounds. Absent: systolic murmur, diastolic murmur, rubs, gallop, clicks GI/Abdominal exam: Present: soft, normal bowel sounds. Absent: distended, tenderness, guarding, rebound, rigid Back exam: Present: CVA tenderness (R). Absent: CVA tenderness (L) Neurological exam: Present: alert, oriented X3, CN II-XII intact Psychiatric exam: Present: normal affect, normal mood Skin exam: Present: warm, dry, intact, normal color. Absent: rash Course Vital Signs 01/27/23 14:11 Temperature 98.6 F Pulse Rate 60 Respiratory 20 Rate Blood Pressure 137/87 O2 Sat by Pulse 98 Oximetry Medical Decision Making - Medical Decision Making This is a 67-year-old male who presents to the emergency department for right flank pain. Was pt. sent in by a medical professional or institution? @ -No Did you speak to anyone other than the patient for history? @ -No Did you review nursing and triage notes? @ -Yes, and I agree, it is accurate with regards to the patient's symptoms. Were old charts reviewed? @ -No Differential Diagnosis? @ -Differential Flank Pain: UTI, pyelonephritis, kidney stone, musculoskeletal, pancreatitis, cholecystitis, this is not meant to be an all-inclusive list. EKG interpreted by me (3pts min.)? @ -EKG interpreted by me demonstrating the following: Electronic atrial pacemaker. Ventricular rate 60 beats per minute, VA interval 222 ms, QRS duration 115 milliseconds, QTC 394 ms. X-rays interpreted by me (1pt min.)? @ -Not obtained CT interpreted by me (1pt min.)? @ -Computed tomography scan of the abdomen and pelvis obtained. My interpretation identifies no evidence of a ureteral calculus. U/S interpreted by me (1pt. min.)? @ -Not obtained What testing was considered but not performed? (CT, X-rays, U/S, labs)? Why? @ -None What meds were considered but not given? Why? @ -None Did you discuss the management of the patient with other professionals? @ -No Did you reconcile home meds? @ -No Was smoking cessation discussed for >3mins.? @ -No Was critical care preformed (if so, how long)? @ -No Were there social determinants of health that impacted care today? How? ( Homelessness, low income, unemployed, alcoholism, drug addiction, transportation, low edu. Level, literacy, decrease access to med. care, prison, rehab)? @ -No Was there de-escalation of care discussed even if they declined? (Discuss DNR or withdrawal of care, Hospice)? @ -No What co-morbidities impacted this encounter? (DM, HTN, Smoking, COPD, CAD, Cancer, CVA, Hep., AIDS, mental health diagnosis, sleep apnea, morbid obesity)? @ -Kidney stones Was patient admitted / discharged? @ -Discharged. Lab work obtained and found to be nonactionable. Urinalysis negative for signs of infection or blood. Given the back pain and left shoulder pain, cardiac workup was obtained as well, and troponin was found to be negative and there were no ST changes on the EKG. Computed tomography scan of the abdomen and pelvis obtained revealing nephrolithiasis, however no stone had moved into the ureter. He was found to have numerous gallstones. Discussed that gallstones are a possible cause of this pain given the location of the back pain, however he is not exhibiting any abdominal pain. Additionally, his lab work does not suggest an acute cholecystitis and there is also no evidence of gallbladder wall thickening or dilation on the computed tomography scan, and we thus did not proceed with an ultrasound of the gallbladder. Patient is in agreement with this plan. We also discussed that his pain could be musculoskeletal in nature. He was given IV fluids, Toradol, and morphine in the emergency department with resolution of symptoms. Prescription for Toradol, Ro baxin, and lidocaine patches provided with dosing instructions reviewed. He is otherwise advised to have close follow-up with his primary care provider. Undiagnosed new problem with uncertain prognosis? @ -None Drug Therapy requiring intensive monitoring for toxicity (Heparin, Nitro, Insulin, Cardizem)? @ -None Were any procedures done? @ -None Diagnosis/symptom? @ -Right mid back pain Acute, or Chronic, or Acute on Chronic? @ -Acute Uncomplicated (without systemic symptoms) or Complicated (systemic symptoms)? @ -Uncomplicated Side effects of treatment? @ -None Exacerbation, Progression, or Severe Exacerbation] @ -Not applicable Poses a threat to life or bodily function? @ -No Return precautions reviewed in depth, the patient is instructed to return to the emergency department with any new, worsening, or concerning symptoms. Patient verbalized understanding. This case was discussed in detail with the attending ED physician, Dr. Bro. Presentation, findings, and treatment plan discussed in detail as well. - Lab Data Result diagrams: 01/27/23 15:13 01/27/23 15:13 Lab Results 01/27/23 01/27/23 01/27/23 Range/Units 15:13 15:13 15:13 WBC 6.4 (3.8-10.6) k/uL RBC 5.15 (4.30-5.90) m/uL Hgb 15.8 (13.0-17.5) gm/dL Hct 48.0 (39.0-53.0) % MCV 93.2 (80.0-100.0) fL MCH 30.6 (25.0-35.0) pg MCHC 32.9 (31.0-37.0) g/dL RDW 13.2 (11.5-15.5) % Plt Count 114 L (150-450) k/uL MPV 11.1 Neutrophils % 67 % Lymphocytes % 22 % Monocytes % 7 % Eosinophils % 2 % Basophils % 0 % Neutrophils # 4.3 (1.3-7.7) k/uL Lymphocytes # 1.4 (1.0-4.8) k/uL Monocytes # 0.5 (0-1.0) k/uL Eosinophils # 0.2 (0-0.7) k/uL Basophils # 0.0 (0-0.2) k/uL Sodium 141 (137-145) mmol/L Potassium 4.4 (3.5-5.1) mmol/L Chloride 109 H (98-107) mmol/L Carbon Dioxide 26 (22-30) mmol/L Anion Gap 6 mmol/L BUN 18 (9-20) mg/dL Creatinine 0.89 (0.66-1.25) mg/dL Est GFR (CKD-EPI)AfAm >90 (>60 ml/min/1.73 sqM) Est GFR (CKD-EPI)NonAf 88 (>60 ml/min/1.73 sqM) Glucose 92 (74-99) mg/dL Calcium 9.3 (8.4-10.2) mg/dL Total Bilirubin 0.8 (0.2-1.3) mg/dL AST 30 (17-59) U/L ALT 30 (4-49) U/L Alkaline Phosphatase 106 (38-126) U/L Troponin I <0.012 (0.000-0.034) ng/mL Total Protein 7.1 (6.3-8.2) g/dL Albumin 4.2 (3.5-5.0) g/dL Amylase 55 (30-110) U/L Lipase 120 (23-300) U/L Urine Color Urine Appearance (Clear) Urine pH (5.0-8.0) Ur Specific [place] (1.001-1.035) Urine Protein (Negative) Urine Glucose (UA) (Negative) Urine Ketones (Negative) Urine Blood (Negative) Urine Nitrite (Negative) Urine Bilirubin (Negative) Urine Urobilinogen (<2.0) mg/dL Ur Leukocyte Esterase (Negative) 01/27/23 Range/Units 15:40 WBC (3.8-10.6) k/uL RBC (4.30-5.90) m/uL Hgb (13.0-17.5) gm/dL Hct (39.0-53.0) % MCV (80.0-100.0) fL MCH (25.0-35.0) pg MCHC (31.0-37.0) g/dL RDW (11.5-15.5) % Plt Count (150-450) k/uL MPV Neutrophils % % Lymphocytes % % Monocytes % % Eosinophils % % Basophils % % Neutrophils # (1.3-7.7) k/uL Lymphocytes # (1.0-4.8) k/uL Monocytes # (0-1.0) k/uL Eosinophils # (0-0.7) k/uL Basophils # (0-0.2) k/uL Sodium (137-145) mmol/L Potassium (3.5-5.1) mmol/L Chloride (98-107) mmol/L Carbon Dioxide (22-30) mmol/L Anion Gap mmol/L BUN (9-20) mg/dL Creatinine (0.66-1.25) mg/dL Est GFR (CKD-EPI)AfAm (>60 ml/min/1.73 sqM) Est GFR (CKD-EPI)NonAf (>60 ml/min/1.73 sqM) Glucose (74-99) mg/dL Calcium (8.4-10.2) mg/dL Total Bilirubin (0.2-1.3) mg/dL AST (17-59) U/L ALT (4-49) U/L Alkaline Phosphatase (38-126) U/L Troponin I (0.000-0.034) ng/mL Total Protein (6.3-8.2) g/dL Albumin (3.5-5.0) g/dL Amylase (30-110) U/L Lipase (23-300) U/L Urine Color Light Yellow Urine Appearance Clear (Clear) Urine pH 6.5 (5.0-8.0) Ur Specific [place] 1.016 (1.001-1.035) Urine Protein Negative (Negative) Urine Glucose (UA) Negative (Negative) Urine Ketones Negative (Negative) Urine Blood Negative (Negative) Urine Nitrite Negative (Negative) Urine Bilirubin Negative (Negative) Urine Urobilinogen <2.0 (<2.0) mg/dL Ur Leukocyte Esterase Negative (Negative) - Radiology Data Radiology results: report reviewed, image reviewed Disposition Clinical Impression: Right-sided back pain Disposition: HOME SELF-CARE Instructions (If sedation given, give patient instructions): Flank Pain (ED), Back Pain (ED) Additional Instructions: Return to the emergency department with any new, worsening, or concerning symptoms. You can take the Toradol up to every 6 hours as needed for pain relief. If you choose to take the Toradol, do not take any other anti- inflammatories such as ibuprofen, take one or the other. You can take the Robaxin up to 3-4 times daily as needed for the pain as well. Be aware that this may make you drowsy and you should avoid driving or operating machinery when taking this. You can also apply the lidocaine patches daily for additional symptomatic control. Follow up with your primary care provider in 1-2 days. Prescriptions: Lidocaine 5% Patch [Lidoderm 5% Patch] 1 patch TOPICAL DAILY PRN #30 patch PRN Reason: Pain methocarbamoL [Robaxin-750] 1,500 mg PO TID PRN #30 tab PRN Reason: Pain Ketorolac [Toradol] 10 mg PO Q6HR PRN #15 tab PRN Reason: Pain Is patient prescribed a controlled substance at d/c from ED?: No Referrals: Juan Bradshaw MD [Primary Care Provider] - 1-2 days
[2023-01-27 15:43] LABS: ALT 30 U/L (4-49); AST 30 U/L (17-59); African American GFR (CKD) >90 (>60 ml/min/1.73 sqM); Albumin 4.2 g/dL (3.5-5.0); Alkaline Phosphatase 106 U/L (38-126); Amylase 55 U/L (30-110); Anion Gap 6 mmol/L; Blood Urea Nitrogen 18 mg/dL (9-20); Calcium 9.3 mg/dL (8.4-10.2); Carbon Dioxide 26 mmol/L (22-30); Chloride 109 mmol/L (98-107); Glucose 92 mg/dL (74-99); Lipase 120 U/L (23-300); Non-African American GFR(CKD) 88 (>60 ml/min/1.73 sqM); Potassium 4.4 mmol/L (3.5-5.1); Sodium 141 mmol/L (137-145); Total Bilirubin 0.8 mg/dL (0.2-1.3); Total Protein 7.1 g/dL (6.3-8.2)
[2023-01-27 15:46] LABS: Basophils % (A) 0 %; Eosinophils # (A) 0.2 k/uL (0-0.7); Eosinophils % (A) 2 %; HGB 15.8 gm/dL (13.0-17.5); Lymphocytes # (A) 1.4 k/uL (1.0-4.8); Lymphocytes % (A) 22 %; MCH 30.6 pg (25.0-35.0); MCHC 32.9 g/dL (31.0-37.0); MCV 93.2 fL (80.0-100.0); Mean Platelet Volume 11.1; Monocytes # (A) 0.5 k/uL (0-1.0); Monocytes % (A) 7 %; Neutrophils # (A) 4.3 k/uL (1.3-7.7); Neutrophils % (A) 67 %; Platelet Count 114 k/uL (150-450); RBC 5.15 m/uL (4.30-5.90); RDW 13.2 % (11.5-15.5); WBC 6.4 k/uL (3.8-10.6)
[2023-01-27 15:55] LABS: Appearance,Urine Clear (Clear); Bilirubin,Urine Negative (Negative); Blood,Urine Negative (Negative); Color,Urine Light Yellow; Glucose,Urine (UA) Negative (Negative); Ketones,Urine Negative (Negative); Leukocyte Esterase,Urine Negative (Negative); Nitrite,Urine Negative (Negative); PH, Urine 6.5 (5.0-8.0); Protein,Urine Negative (Negative); Specific Gravity,Urine 1.016 (1.001-1.035); Urobilinogen,Urine <2.0 mg/dL (<2.0)
--- NOTE | 2023-01-27 16:53 | CT ---
EXAMINATION TYPE: CT abdomen pelvis wo con DATE OF EXAM: 01/27/2023 COMPARISON: 10/03/2017 HISTORY: 67-year-old male right flank pain CT DLP: 1706.8 mGycm. Automated exposure control for dose reduction was used. TECHNIQUE: Contiguous axial scanning of the abdomen and pelvis without IV contrast. Coronal and sagit timmy reconstructions performed. FINDINGS: Pacer leads are present. PFO closure device. Heart normal size without pericardial effusion. Mild bro nchial wall thickening could reflect bronchitis or asthma. Strandy atelectasis in the lower lungs. No pleural effusion. Tiny hiatal hernia. Noncontrast appearance of the liver, spleen, and pancreas show no gross abnormal body. Numerous small layering gallstones. No abnormal gallbladder distention. Bilateral renal cortical cysts have varied in size in the interval currently measuring up to 2.2 cm o n the right and 3.3 cm on the left. On the right, there are approximately 8 nonobstructive renal calculi measuring up to 8 mm. On the left, approximately 14 nonobstructive calculi measuring up to 5 mm. No hydronephrosis or suspicious ureteral calculus is seen. No dilated small bowel, free fluid, or free air. No mesenteric or retroperitoneal lymphadenopathy. Mi ld stool burden. Proximal to mid sigmoid diverticulosis. No pericolonic inflammatory change. Bladder incompletely distended. Prostate gland mildly enlarged at 4.4 cm wide. Multiple pelvic phlebo liths. No abnormal fluid collection in the pelvis or pelvic lymphadenopathy. Bones: Severe degenerative disc disease L5-S1 and moderate at L4-L5. Grade 1 anterolisthesis L5 5-S1. 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 IMPRESSION: 1. Bilateral nephrolithiasis, more numerous on the left, and measuring up to 8 mm. No ureteral stone or hydronephrosis is seen. 2. Numerous small layering gallstones. 3. Proximal to mid sigmoid diverticulosis without acute diverticulitis. 4. Tiny hiatal hernia.
[2023-01-27 18:00] VITALS: BP 129/97; RESP 16
== END 2023-01-27 18:00 | disposition home or self-care (01) ==
LOC: EC 14:00
DX: M54.9 Dorsalgia, unspecified (principal); I48.91 Unspecified atrial fibrillation; Z88.5 Allergy status to narcotic agent
CPT/HCPCS: 36415; 93005; 80053; 82150; 83605; 83690; 84484; 85025; 81003; 74176; 99284; 96374; 96375; 96361; J2270; J1885

== ENCOUNTER 2023-10-13 09:51 | Emergency (ER) | payer MEDICARE ==
[2023-10-13 10:04] VITALS: PULSE 60; TEMP 98.2
--- NOTE | 2023-10-13 10:45 | ED ---
Dizziness HPI - General Chief Complaint: Dizziness Stated Complaint: abn EKG Time Seen by Provider: 10/13/23 10:10 Source: patient, RN notes reviewed Mode of arrival: ambulatory Limitations: no limitations - History of Present Illness Initial Comments: 68-year-old male with history of atrial fibrillation and pacemaker presenting to the ER with dizziness x 1 day. States he presented to his PCP today for this where they told him he had an abnormal EKG and positive orthostatic vitals and symptoms to the ER for further evaluation. Patient reports the dizziness feels as though the room is spinning and is worsened when he sits up quickly or stands up. Denies syncope or falls. Denies chest pain, shortness of breath. States this feels similar to vertigo which she had many years ago. He is on Xarelto daily. Denies numbness, weakness, tingling in any extremities. - Related Data Home Medications Medication Instructions Recorded Confirmed Atorvastatin [Lipitor] 40 mg PO DAILY 10/13/23 10/13/23 Dorzolamide/Timolol/Pf 1 drop BOTH EYES BID 10/13/23 10/13/23 [Dorzolamide 2%-Timolol 0.5%] Potassium Citrate [Potassium 20 meq PO DAILY 10/13/23 10/13/23 Citrate ER] Pramipexole [Mirapex] 0.5 mg PO HS 10/13/23 10/13/23 Prednisolone Acetate/Pf 1 drop BOTH EYES DAILY 10/13/23 10/13/23 [Prednisolone Acet 1% Eye Drop] Rivaroxaban [Xarelto] 20 mg PO DAILY 10/13/23 10/13/23 Tamsulosin HCl [Flomax] 0.4 mg PO DAILY 10/13/23 10/13/23 Travoprost [Travoprost 0.004%] 1 drop BOTH EYES HS 10/13/23 10/13/23 Allergies Allergy/AdvReac Type Severity Reaction Status Date / Time codeine AdvReac Vomiting Verified 10/13/23 10:49 Review of Systems ROS Statement: Those systems with pertinent positive or pertinent negative responses have been documented in the HPI. ROS Other: All systems not noted in ROS Statement are negative. Past Medical History Past Medical History: Atrial Fibrillation, Chest Pain / Angina Additional Past Medical History / Comment(s): kidney stones Past Surgical History: No Surgical Hx Reported Additional Past Surgical History / Comment(s): lithotripsy, Ureter stents Past Psychological History: No Psychological Hx Reported Smoking Status: Never smoker Past Alcohol Use History: None Reported Past Drug Use History: None Reported General Exam Limitations: no limitations General appearance: alert, in no apparent distress Head exam: Present: atraumatic, normocephalic, normal inspection Eye exam: Present: normal appearance, PERRL, EOMI. Absent: scleral icterus, conjunctival injection, periorbital swelling ENT exam: Present: normal exam, mucous membranes moist, TM's normal bilaterally Neck exam: Present: normal inspection. Absent: tenderness, meningismus, lymphadenopathy Respiratory exam: Present: normal lung sounds bilaterally. Absent: respiratory distress, wheezes, rales, rhonchi, stridor Cardiovascular Exam: Present: regular rate, normal rhythm, normal heart sounds. Absent: systolic murmur, diastolic murmur, rubs, gallop, clicks GI/Abdominal exam: Present: soft, normal bowel sounds. Absent: distended, tenderness, guarding, rebound, rigid Extremities exam: Present: normal inspection, full ROM, normal capillary refill. Absent: tenderness, pedal edema, joint swelling, calf tenderness Neurological exam: Present: alert, oriented X3, CN II-XII intact Psychiatric exam: Present: normal affect, normal mood Skin exam: Present: warm, dry, intact, normal color. Absent: rash Course Vital Signs 10/13/23 10/13/23 09:59 12:36 Temperature 98.2 F Pulse Rate 60 60 Respiratory 20 16 Rate Blood Pressure 131/86 107/74 O2 Sat by Pulse 97 98 Oximetry EKG Findings - EKG Results: EKG: interpreted by ERMD (EKG reveals electronic atrial pacemaker with no ST changes. Ventricular rate 59 bpm, OH interval 255, QRS duration 80, QT/QTc 365/365.) Medical Decision Making - Medical Decision Making Was pt. sent in by a medical professional or institution (, PA, LICENSED GUIDE, urgent care, hospital, or jail...) When possible be specific @ -Sent by PCP for orthostatic hypotension Did you speak to anyone other than the patient for history (EMS, parent, family, police, friend...)? What history was obtained from this source @ -No Did you review nursing and triage notes (agree or disagree)? Why? @ -I reviewed and agree with nursing and triage notes Were old charts reviewed (outside hosp., previous admission, EMS record, old EKG, old radiological studies, urgent care reports/EKG's, jail records)? Report findings @ -No old charts were reviewed Differential Diagnosis (chest pain, altered mental status, abdominal pain women, abdominal pain men, vaginal bleeding, weakness, fever, dyspnea, syncope, headache, dizziness, GI bleed, back pain, seizure, CVA, palpatations, mental health, musculoskeletal)? @ -Differential Dizziness: Benign paroxysmal positional Vertigo, Menieres disease, otitis media, acoustic neuroma, vertebrobasilar insufficiency, cerebellar stroke, encephalitis, hypovolemic, arrhythmia, coronary artery syndrome, anemia, this is not meant to be an all-inclusive list EKG interpreted by me (3pts min.). @ -As above X-rays interpreted by me (1pt min.). @ -None done CT interpreted by me (1pt min.). @ -None done U/S interpreted by me (1pt. min.). @ -None done What testing was considered but not performed or refused? (CT, X-rays, U/S, labs)? Why? @ -CT not performed due to patient has history of vertigo, no red flag symptoms What meds were considered but not given or refused? Why? @ -None Did you discuss the management of the patient with other professionals (professionals i.e. , PA, LICENSED GUIDE, lab, RT, psych nurse, social work lecturer, fire production operator, teacher, vessel traffic officer, case management director)? Give summary @ -No Was smoking cessation discussed for >3mins.? @ -No Was critical care preformed (if so, how long)? @ -No Were there social determinants of health that impacted care today? How? (Homelessness, low income, unemployed, alcoholism, drug addiction, transportation, low edu. Level, literacy, decrease access to med. care, correction, rehab)? @ -No Was there de-escalation of care discussed even if they declined (Discuss DNR or withdrawal of care, Hospice)? DNR status @ -No What co-morbidities impacted this encounter? (DM, HTN, Smoking, COPD, CAD, Cancer, CVA, ARF, Chemo, Hep., AIDS, mental health diagnosis, sleep apnea, morbid obesity)? @ -None Was patient admitted / discharged? Hospital course, mention meds given and route, prescriptions, significant lab abnormalities, going to OR and other pe rtinent info. @ -Patient was discharged. Patient was seen and evaluated for dizziness x 1 day. States this feels similar to previous vertigo. Sent by PCP due to positive orthostatic vital signs in office. Vitals are stable, neuro examination is unremarkable. TMs unremarkable. Lab work and EKG are unremarkable. Chest x-ray reveals no acute process with COPD changes. Patient is given meclizine and IV fluids and patient reports symptoms have resolved. Orthostatic vital signs taken were negative. Discussed diagnosis of acute vertigo. Patient reports PCP already sent in a prescription for meclizine to his pharmacy. Patient is able to stand without symptoms. Strict return/alarm symptoms discussed with patient and he shows understanding and agrees to plan. Advise close follow-up with PCP. Discharged in stable condition. Case discussed with Dr. Rao. Undiagnosed new problem with uncertain prognosis? @ -No Drug Therapy requiring intensive monitoring for toxicity (Heparin, Nitro, Insulin, Cardizem)? @ -No Were any procedures done? @ -No Diagnosis/symptom? @ -Vertigo Acute, or Chronic, or Acute on Chronic? @ -Acute Uncomplicated (without systemic symptoms) or Complicated (systemic symptoms)? @ -Uncomplicated Side effects of treatment? @ -No Exacerbation, Progression, or Severe Exacerbation? @ -No Poses a threat to life or bodily function? How? (Chest pain, USA, LA, pneumonia, PE, COPD, DKA, ARF, appy, cholecystitis, CVA, Diverticulitis, Homicidal, Suicidal, threat to staff... and all critical care pts) @ -No - Lab Data Result diagrams: 10/13/23 10:33 10/13/23 10:33 Lab Results 10/13/23 10/13/23 10/13/23 Range/Units 10:33 10:33 10:33 WBC 4.5 (3.8-10.6) k/uL RBC 5.13 (4.30-5.90) m/uL Hgb 15.3 (13.0-17.5) gm/dL Hct 47.5 (39.0-53.0) % MCV 92.6 (80.0-100.0) fL MCH 29.8 (25.0-35.0) pg MCHC 32.2 (31.0-37.0) g/dL RDW 13.4 (11.5-15.5) % Plt Count 116 L (150-450) k/uL MPV 11.3 Neutrophils % 52 % Lymphocytes % 35 % Monocytes % 6 % Eosinophils % 3 % Basophils % 1 % Neutrophils # 2.3 (1.3-7.7) k/uL Lymphocytes # 1.6 (1.0-4.8) k/uL Monocytes # 0.3 (0-1.0) k/uL Eosinophils # 0.1 (0-0.7) k/uL Basophils # 0.0 (0-0.2) k/uL Manual Slide Review Performed RBC Morphology Normal PT 12.7 H (10.0-12.5) sec INR 1.2 H (<1.2) APTT 31.3 H (22.0-30.0) sec Sodium 142 (137-145) mmol/L Potassium 4.4 (3.5-5.1) mmol/L Chloride 110 H (98-107) mmol/L Carbon Dioxide 26 (22-30) mmol/L Anion Gap 6 mmol/L BUN 24 H (9-20) mg/dL Creatinine 0.90 (0.66-1.25) mg/dL Est GFR (CKD-EPI)AfAm >90 (>60 ml/min/1.73 sqM) Est GFR (CKD-EPI)NonAf 86 (>60 ml/min/1.73 sqM) Glucose 106 H (74-99) mg/dL Calcium 9.3 (8.4-10.2) mg/dL Magnesium 1.9 (1.6-2.3) mg/dL Total Bilirubin 0.7 (0.2-1.3) mg/dL AST 24 (17-59) U/L ALT 22 (4-49) U/L Alkaline Phosphatase 108 (38-126) U/L Troponin I (0.000-0.034) ng/mL Total Protein 6.7 (6.3-8.2) g/dL Albumin 3.9 (3.5-5.0) g/dL // Range/Units 10:33 WBC (3.8-10.6) k/uL RBC (4.30-5.90) m/uL Hgb (13.0-17.5) gm/dL Hct (39.0-53.0) % MCV (80.0-100.0) fL MCH (25.0-35.0) pg MCHC (31.0-37.0) g/dL RDW (11.5-15.5) % Plt Count (150-450) k/uL MPV Neutrophils % % Lymphocytes % % Monocytes % % Eosinophils % % Basophils % % Neutrophils # (1.3-7.7) k/uL Lymphocytes # (1.0-4.8) k/uL Monocytes # (0-1.0) k/uL Eosinophils # (0-0.7) k/uL Basophils # (0-0.2) k/uL Manual Slide Review RBC Morphology PT (10.0-12.5) sec INR (<1.2) APTT (22.0-30.0) sec Sodium (137-145) mmol/L Potassium (3.5-5.1) mmol/L Chloride (98-107) mmol/L Carbon Dioxide (22-30) mmol/L Anion Gap mmol/L BUN (9-20) mg/dL Creatinine (0.66-1.25) mg/dL Est GFR (CKD-EPI)AfAm (>60 ml/min/1.73 sqM) Est GFR (CKD-EPI)NonAf (>60 ml/min/1.73 sqM) Glucose (74-99) mg/dL Calcium (8.4-10.2) mg/dL Magnesium (1.6-2.3) mg/dL Total Bilirubin (0.2-1.3) mg/dL AST (17-59) U/L ALT (4-49) U/L Alkaline Phosphatase (38-126) U/L Troponin I <0.012 (0.000-0.034) ng/mL Total Protein (6.3-8.2) g/dL Albumin (3.5-5.0) g/dL Disposition Clinical Impression: Vertigo Disposition: HOME SELF-CARE Condition: Stable Instructions (If sedation given, give patient instructions): Vertigo (ED) Additional Instructions: Please follow-up with PCP within the week. Please return to the Emergency Department if symptoms worsen or any other concerns. Is patient prescribed a controlled substance at d/c from ED?: No Referrals: Juan Bradshaw MD [Primary Care Provider] - 1-2 days Time of Disposition: 15:00
[2023-10-13 10:50] LABS: Basophils % (A) 1 %; Eosinophils # (A) 0.1 k/uL (0-0.7); Eosinophils % (A) 3 %; HCT 47.5 % (39.0-53.0); HGB 15.3 gm/dL (13.0-17.5); Lymphocytes # (A) 1.6 k/uL (1.0-4.8); Lymphocytes % (A) 35 %; MCH 29.8 pg (25.0-35.0); MCHC 32.2 g/dL (31.0-37.0); MCV 92.6 fL (80.0-100.0); Mean Platelet Volume 11.3; Monocytes # (A) 0.3 k/uL (0-1.0); Monocytes % (A) 6 %; Neutrophils # (A) 2.3 k/uL (1.3-7.7); Neutrophils % (A) 52 %; Platelet Count 116 k/uL (150-450); RBC 5.13 m/uL (4.30-5.90); RDW 13.4 % (11.5-15.5); WBC 4.5 k/uL (3.8-10.6)
[2023-10-13 10:57] LABS: INR 1.2 (<1.2); Partial Thromboplastin Time 31.3 sec (22.0-30.0); Prothrombin Time 12.7 sec (10.0-12.5)
--- NOTE | 2023-10-13 11:08 | XR ---
EXAMINATION TYPE: XR chest 2V DATE OF EXAM: 10/13/2023 10:49 AM CLINICAL INDICATION:Male, 68 years old with history of Chest PAIN; H COMPARISON: Chest radiographs from 02/18/2022 TECHNIQUE: XR chest 2V Frontal and lateral views of the chest. FINDINGS: Lungs/Pleura: Prominent interstitial lung markings are seen scattered throughout the lungs with hussain ening of the diaphragm and increased lucency of the lung apices. No evidence of focal consolidation, pneumothorax or pleural effusion. Pulmonary vascularity: Unremarkable. Heart/mediastinum: Cardiomediastinal silhouette is unremarkable. Two lead cardiac conduction device o verlying the left hemithorax with lead tips projecting over the right ventricle and right atrium. Musculoskeletal: No acute osseous pathology. IMPRESSION: 1. No acute cardiopulmonary disease process. 2. COPD changes.
[2023-10-13 11:12] LABS: ALT 22 U/L (4-49); AST 24 U/L (17-59); African American GFR (CKD) >90 (>60 ml/min/1.73 sqM); Albumin 3.9 g/dL (3.5-5.0); Alkaline Phosphatase 108 U/L (38-126); Anion Gap 6 mmol/L; Blood Urea Nitrogen 24 mg/dL (9-20); Calcium 9.3 mg/dL (8.4-10.2); Carbon Dioxide 26 mmol/L (22-30); Chloride 110 mmol/L (98-107); Glucose 106 mg/dL (74-99); Magnesium 1.9 mg/dL (1.6-2.3); Non-African American GFR(CKD) 86 (>60 ml/min/1.73 sqM); Potassium 4.4 mmol/L (3.5-5.1); Sodium 142 mmol/L (137-145); Total Bilirubin 0.7 mg/dL (0.2-1.3); Total Protein 6.7 g/dL (6.3-8.2)
[2023-10-13 11:45] LABS: RBC Morphology Normal
[2023-10-13] MEDS: MECLIZINE 12.5 MG TAB PO STA (12:34)
[2023-10-13] MEDS: SODIUM CHLORIDE 0.9% 1,000 ML IV STA (12:35)
[2023-10-13 13:02] VITALS: BP 107/74; RESP 16
== END 2023-10-13 15:15 | disposition home or self-care (01) ==
LOC: EC 09:51
DX: R42 Dizziness and giddiness (principal); Z88.5 Allergy status to narcotic agent
CPT/HCPCS: 36415; 71046; 80053; 83735; 84484; 85025; 85610; 85730; 96360; 99284

== ENCOUNTER → 2023-11-10 | Outpatient (CLI) | payer MEDICARE ==
[~2023-11-10] MED LIST changes: -BEBTELOVIMAB (EUA) 175 MG/2 ML VIAL IV NR; +DOBUTamine DRIP for NUC MED 500 MG in DEXTROSE/WATER 1 250ML.BAG IV PRN; +DOBUTamine DRIP for NUC MED 500 MG/250 ML BAG IV ONE; -SODIUM CHLORIDE 0.9% 500 ML 500 ML in EMPTY BAG 1 BAG IV PRN
--- NOTE | 2023-11-10 12:09 | CA ---
Dobutamine Stress Echocardiogram Report Chet Lemus Age: 68 Gender: M : 1955 Exam Date: 11/10/2023 09:30 Exam Location: [facility] Ordering Physician: Juan Bradshaw MD Referring Physician: Juan Bradshaw MD House Supervisor: Gisel Horton RDCS Technologist: Ht (in): 69 Wt (lb): 225 Procedure CPT: Indication: R06.09 Other forms of dyspnea ICD-9 Codes: Rhythm: Patient History: DIFFICULTY IN BREATHING, PRIOR CVA, HYPERCHOLESTEROLEMIA, FAMILY HX OF HEART DISEASE, COPD Cardiac Medications: Medications in past 24 hours: Contrast: Definity Total Dose (mL): Stress Results Protocol: Dobutamine Peak Dose (???g/kg/min): 40 Duration (min:sec): Atropine:(mg) Target HR: 128 Double Product: [id number] Resting HR: 57 Resting BP: 112 / 69 Peak HR: 223 Peak BP: 157 / 94 Max Predicted HR: 150 149 % Max Predicted HR Stress Summary: BP Response: Reason for Termination: DIRECTED PER HEATER FURNACE Cardiac Symptoms: NO SYMPTOMS ECG Analysis Resting EKG: Stress EKG: Arrhythmia: Echo Analysis Base Echo Analysis: Low Echo Anaylsis: Peak Echo Analysis: Recovery Echo: MEASUREMENTS (Male/Female) Normal Values CONCLUSIONS Normal electrocardiogram and echocardiogram in response to dobutamine Dr. Jose Manuel Vicente MD (Electronically Signed) Final Date: 10 November 2023 12:08
== END | disposition home or self-care (01) ==
LOC: RADNMMAIN 08:54
PROVIDERS: ATTEND Family Medicine
DX: J44.9 Chronic obstructive pulmonary disease, unspecified (principal); E78.00 Pure hypercholesterolemia, unspecified; Z86.73 Personal history of transient ischemic attack (TIA), and cerebral infarction without residual deficits
CPT/HCPCS: 93351; Q9957